=== PATIENT | male | born 1995 | race Asian ===

== ENCOUNTER 2021-12-06 22:15 | Emergency (ER) | payer OTHER ==
--- NOTE | 2021-12-06 23:04 | ED Physician Documentation ---
PD HPI UPPER EXT INJURY - Stated complaint Stated Complaint: L MIDDLE FINGER LAC - Chief complaint Chief Complaint: Laceration - History obtained from History obtained from: Patient - History of Present Illness Location: Left, Finger Type of injury: Laceration Where injury occurred: Work Timing - onset: Enter time (21:30), Today Timing - details: Abrupt onset Pain level now: 3 Improved by: Rest Worsened by: Palpating Associated symptoms: No: Weakness, Numbness, Tingling, Swelling, Discolored Recently seen: Not recently seen - Additonal information Additional information: tonight approximately 9:30 PM, patient was at work when the pad of his left middle finger became caught between two pieces of metal, avulsing the finger pad. he is UTD on tetanus immunization. he is right hand dominant Review of Systems Skin: reports: Laceration (s) Musculoskeletal: reports: Extremity pain Neurologic: denies: Focal weakness, Numbness PD PAST MEDICAL HISTORY - Past Medical History Past Medical History: No - Present Medications Home Medications: Ambulatory Orders Medication Instructions Recorded Confirmed cephALEXin [Keflex] 500 mg PO TID #14 cap 12/06/21 - Allergies Allergies/Adverse Reactions: Allergies Allergy/AdvReac Type Severity Reaction Status Date / Time No Known Drug Allergies Allergy Verified 12/06/21 22:22 PD ED PE NORMAL - Vitals Vital signs reviewed: Yes - General General: Alert and oriented X 3, No acute distress, Well developed/nourished - Extremities Extremities: Normal ROM s pain - Neuro Neuro: No motor deficit (full flexion and extension left third finger including isolation of DIP joint) PD ED PE EXPANDED - Extremities PHUC UE/Hands Visual: 1 - laceration (avulsed skin with exposed adipose tissue, slow oozing bleeding) Results - Vitals Vitals: Oxygen O2 Source Room air PD MEDICAL DECISION MAKING - ED course Complexity details: considered differential, d/w patient ED course: presents with avulsed pad of left third finger. there is no opportunity for suture repair due to distance of wound edges. there is no bone exposure and ROM is intact. there is active, non-pulsatile bleeding from several areas; unable to visualize any specific source/area of bleeding. the T-ring system is used; the tournequet provided complete hemostasis and further inspection with this clear field shows no FB visualized and no obvious/apparent source of bleeding. surgifoam is placed on the wound and secured with the clear adhesive bandage provided with the T-system kit (reinforced with benzoin). the tourniquet was rhen cut away, and bleeding resumed but rapidly slowed with the surgifoam and slight pressure provided with the adhesive bandage. finger splint placed and discharged, given antibiotic (keflex) for wound prophylaxis, seeing how the wound remains opened and will have to heal by secondary intention (or, if appropriate, skin graft) Departure - Departure Disposition: 01 Home, Self Care Clinical Impression: Fingertip avulsion Qualifiers: Encounter type: initial encounter Qualified Code(s): S61.209A - Unspecified open wound of unspecified finger without damage to nail, initial encounter Condition: Good Instructions: ED Avulsion Dermal Follow-Up: CHRISTIANA Juan [Provider Group] Prescriptions: cephALEXin [Keflex] 500 mg PO TID #14 cap Comments: Keep the bandage on until you are reevaluated. You should be reevaluated in the next 1-2 days; call your primary care provider in the morning to arrange follow up. An antibiotic has been prescribed to help prevent infection; the prescription has been electronically submitted to the [facility] pharmacy in [place]. Discharge Date/Time: 12/07/21 00:00
[2021-12-06] MEDS ORDERED: cephALEXin 250 MG CAPSULE PO STA (23:47)
[2021-12-07 00:01] VITALS: BP 128/80
== END 2021-12-07 | disposition home or self-care (01) ==
LOC: ED 22:15
DX: S61.203A Unspecified open wound of left middle finger without damage to nail, initial encounter (principal); W23.0XXA Caught, crushed, jammed, or pinched between moving objects, initial encounter; Y99.0 Civilian activity done for income or pay
CPT/HCPCS: 99282; A9270

== ENCOUNTER 2023-06-09 19:36 | Outpatient (CLI) | payer OTHER ==
--- NOTE | 2023-06-10 13:55 | XRAY Report ---
PROCEDURE: Abdomen 2 View X-Ray INDICATIONS: RUQ PAIN TECHNIQUE: 4 views of the abdomen were acquired. COMPARISON: None. FINDINGS: Surgical changes and devices: None. Bowel: No pneumoperitoneum. The bowel gas pattern is normal. Stool load within normal limits. Soft tissues: No masses; visualized solid organ contours appear normal in size. No suspicious abdom inal calcifications. Bones: No suspicious bony abnormalities. IMPRESSION: No acute abdominal pathology. Reviewed by: Coral Melvin MD on 06/10/2023 1:54 PM PDT Approved by: Coral Melvin MD on 06/10/2023 1:54 PM PDT Station ID: [id number]
== END 2023-06-09 19:37 | disposition home or self-care (01) ==
LOC: DI 19:36
PROVIDERS: ATTEND Physician Assistant Medical
DX: R10.11 Right upper quadrant pain (principal)
CPT/HCPCS: 36415; 80053; 83690; 85025

== ENCOUNTER 2023-06-09 19:44 | Outpatient (CLI) | payer OTHER ==
[2023-06-09 20:12] LABS: BASOPHILS # (AUTO) 0.1 10^3/uL (0.0-0.1); BASOPHILS % (AUTO) 0.9 %; EOSINOPHILS # (AUTO) 0.1 10^3/uL (0.0-0.7); EOSINOPHILS % (AUTO) 1.5 %; HCT - HEMATOCRIT 43.6 % (42.0-52.0); HGB - HEMOGLOBIN 13.7 g/dL (14.0-18.0); LYMPHOCYTES # (AUTO) 1.5 10^3/uL (1.5-3.5); LYMPHOCYTES % (AUTO) 26.2 %; MEAN CORPUSCULAR HEMOGLOBIN 26.3 pg (27.0-31.0); MEAN CORPUSCULAR HGB CONC 31.4 g/dL (32.0-36.0); MEAN CORPUSCULAR VOLUME 83.8 fL (80.0-94.0); MEAN PLATELET VOLUME 9.3 fL (7.4-11.4); MONOCYTES # (AUTO) 0.4 10^3/uL (0.0-1.0); MONOCYTES % (AUTO) 7.5 %; NEUTROPHILS # (AUTO) 3.8 10^3/uL (1.5-6.6); NEUTROPHILS % (AUTO) 63.7 %; PLT - PLATELET COUNT 316 10^3/uL (130-450); RED CELL DISTRIBUTION WIDTH 12.5 % (12.0-15.0); WHITE BLOOD COUNT 5.9 x10^3/uL (4.8-10.8)
[2023-06-09 20:25] LABS: ALBUMIN 4.7 g/dL (3.2-5.5); ALBUMIN/GLOBULIN RATIO 1.8 (1.0-2.2); BILIRUBIN,TOTAL 1.2 mg/dL (0.2-1.0); CALCIUM 9.5 mg/dL (8.5-10.3); CREATININE 0.9 mg/dL (0.6-1.3); POTASSIUM 3.6 mmol/L (3.5-4.5); TOTAL PROTEIN 7.3 g/dL (6.4-8.9)
== END 2023-06-09 19:45 | disposition home or self-care (01) ==
LOC: LAB 19:44
PROVIDERS: ATTEND Physician Assistant Medical
DX: R10.11 Right upper quadrant pain (principal)
CPT/HCPCS: 36415; 80053; 83690; 85025

== ENCOUNTER 2024-01-23 09:56 | Outpatient (CLI) | payer OTHER ==
--- NOTE | 2024-01-23 21:07 | MRI Report ---
PROCEDURE: Shoulder RT WO INDICATIONS: R SHOULDER PAIN TECHNIQUE: Noncontrast oblique coronal T2 fast spin echo with fat saturation, oblique sagittal T1 spin echo and T2 fast spin echo with fat saturation, axial T1 spin echo and T2 fast spin echo with fat saturation t hrough the shoulder. COMPARISON: None. FINDINGS: Image quality: Excellent. Rotator cuff: Low-grade articular and bursal surface partial-thickness tear involving distal supraspi natus at its insertion on humeral head is seen extending to musculotendinous junction. Low-grade caity cular surface partial-thickness tear involving distal infraspinatus at its insertion on humeral head. The subscapularis tendon is intact. No full-thickness rotator cuff tendon rupture. No rotator cuff m uscle atrophy on sagittal images. Bones and bursae: No bone marrow contusions or fractures. Mild acromioclavicular joint osteophytic c hanges are seen with joint space narrowing and downward osteophyte formation depressing on musculoten dinous junction of supraspinatus. The acromion demonstrates conventional anatomy, without an os acrom iale. No pathologic subacromial/subdeltoid bursal fluid is present. Capsule and soft tissues: In the absence of intra-articular contrast, the labrum and glenohumeral li gaments appear intact. The long head of the biceps tendon demonstrates normal location and morpholog y. The rotator interval appears normal, without fibrosis. The coracohumeral ligament is normal in t hickness. IMPRESSION: 1. Low-grade articular and bursal surface partial-thickness tear involving distal supraspinatus exten ding to musculotendinous junction. Low-grade articular surface partial-thickness tear involving dista l infraspinatus. No full-thickness rotator cuff tendon rupture. 2. Mild acromioclavicular joint osteoarthritis. No fracture or dislocation. No significant joint effu bing or intra-articular loose bodies. 3. No evidence of gross labral tear. Reviewed by: Jordan Mercado MD on 01/23/2024 9:06 PM PDT Approved by: Jordan Mercado MD on 01/23/2024 9:06 PM PDT Station ID: [id number]
== END 2024-01-23 09:57 | disposition home or self-care (01) ==
LOC: DI 09:56
PROVIDERS: ATTEND Nurse Practitioner Family
DX: M75.111 Incomplete rotator cuff tear or rupture of right shoulder, not specified as traumatic (principal); M19.011 Primary osteoarthritis, right shoulder